=== PATIENT | female | born 1935 | race African-American/Black ===

== ENCOUNTER → 2016-09-15 | Day surgery (SDC) | payer MEDICARE, OTHER ==
[~2016-09-15] MED LIST: ALBUTEROL20 ml INH; ASPIRIN EC81 M1 PO; CALCIUM 500 +1 EAC2 PO; GERITOL COMPLET1 TA1 PO; GLUCOPHAGE500 MG PO; HYDROCODON-ACE1 EAC5 PO; LASIX20 MG PO; METFORMIN HCL500 M1 PO; METFORMIN PO; NEURONTIN300 MG PO; NORVASC10 MG PO; POTASSIUM CHLO10 MEQ PO; PROTONIX PO; SINGULAIR PO; TOPROL XL50 MG PO; VASOTEC20 MG PO; VITAMIN B6 PO; VITAMIN B650 MG PO
--- NOTE | ~2016-09-15 | OR ---
Unit #: [id number] #: [id number] Patient: DAMI VARELA [id number] [address] [place], [place] [address] [id number] MR#: [id number] NAME: DAMI VARELA. ROOM: Date of Procedure: 09/15/2016 Admission Date: 09/15/2016 Surgeon: Man Granda M.D. : 1935 Attending Physician: Man Granda M.D. Primary Care Physician: Cheyanne Mckeon M.D. [facility]ENTER OPERATIVE NOTE PROCEDURE PERFORMED Lumbar epidural steroid injection under x-ray guided needle placement with provider administered conscious sedation. PREOPERATIVE DIAGNOSES 1. Acute lumbar radiculitis. 2. Spinal stenosis, lumbosacral spine. 3. Herniated disk at multiple levels. 4. Degenerative joint disease, lumbosacral spine. 5. Degenerative disk disease, lumbosacral spine. INDICATIONS FOR PROCEDURE The patient presents today with longstanding history of chronic lumbar radicular pain secondary to her underlying degenerative processes. She is generally fairly well managed medically with ongoing continuous conservative therapy. However, she does occasionally experience exacerbations, which to date have only responded to epidural steroid injections. Her usual amount of response approximately 60% for 6 to 8 weeks. She presents today with a 4 to 6 week history of increasing crescendo pattern radicular pain, which is breaking through her ongoing continuous conservative therapy and is consistent with her previous x-ray study. After discussing risks and benefits of proceeding today with a lumbar approach epidural steroid injection utilizing dual needle access technique, the patient agreed this would be the appropriate course of action. She was also offered the opportunity to return to service on 12/22/2016 if we could be of further service to her. DESCRIPTION OF PROCEDURE Following these discussions, the patient was taken to the operating room where she was prepped and draped in a sterile manner. Standard monitors were applied. She was sedated with 2 mg of IV Versed and lumbar epidural space was accessed at the L5-S1 and L3-4 levels using loss of resistance technique and x-ray guidance. Needle placement was confirmed with injection of 2 mL of Omnipaque at each level. At the L5-S1 level, there was good superior and inferior flow and at the L3-4 level approximately 80% of the flow was in the superior direction. Total x-ray time for this dual needle placement was 13 seconds. Following successful needle placement confirmation, the patient received an injectate containing 4 mL of normal saline, 40 mg of methylprednisolone at each level for a total injectate volume of 8 mL of normal saline, 80 mg of methylprednisolone. She tolerated this procedure well. She was discharged home with followup instructions, which include return to this clinic on 12/22/2016. Unit #: [id number] #: [id number] Patient: DAMI VARELA Dictated by... Jalyn Azar/odalis TD: 09/16/2016 00:48 JOB #: [id number] CC: Mark Kwan M.D. SUR[facility] CENTER OPERATIVE NOTE Page 1 of 1 X Miles Granda MD X PROCEDURE OPERATIVE NOTE
== END | disposition home or self-care (01) ==
LOC: CCSC 09:49
DX: G89.29 Other chronic pain (principal); M51.17 Intervertebral disc disorders with radiculopathy, lumbosacral region; M47.27 Other spondylosis with radiculopathy, lumbosacral region; M48.07 Spinal stenosis, lumbosacral region; J45.909 Unspecified asthma, uncomplicated; K21.9 Gastro-esophageal reflux disease without esophagitis; M19.90 Unspecified osteoarthritis, unspecified site; Z88.0 Allergy status to penicillin; Z91.013 Allergy to seafood; Z96.653 Presence of artificial knee joint, bilateral; Z98.41 Cataract extraction status, right eye; Z98.42 Cataract extraction status, left eye; Z98.890 Other specified postprocedural states
CPT/HCPCS: 82947; J1040; J2250